=== PATIENT | male | born 1945 | race African-American/Black ===

== ENCOUNTER 2019-04-28 12:43 | Emergency (ER) | payer MEDICARE ==
[~2019-04-28] VITALS: Ht 182.9 cm; Wt 117.9 kg
--- NOTE | 2019-04-28 13:26 | RAD ---
EXAM: Head CT without contrast. HISTORY: Left-sided weakness. Anticoagulation. TECHNIQUE: Computed tomographic images of the head were obtained without contrast. *One or more of the following individualized dose reduction techniques were utilized for this examination: 1. Automated exposure control. 2. Adjustment of the mA and/or kV according to patient size. 3. Use of iterative reconstruction technique. COMPARISON: None. FINDINGS: There is no acute or subacute extra-axial or intraparenchymal hemorrhage. There is no mass effect or midline shift. There is no hydrocephalus. There are areas of decreased attenuation within the cerebral white matter, nonspecific and likely related to chronic small vessel disease. There is a tiny focus of increased density at the roof of the third ventricle, possibly due to cord calcification or a tiny colloid cyst of no clinical significance. There is heavily calcified atherosclerotic plaque within the distal vertebral and internal carotid arteries. There is paranasal sinus mucosal thickening. There is orbital band keratopathy. The mastoid air cells are clear. There is no suspicious calvarial lesion. IMPRESSION: 1. No acute intracranial finding. Note is made that MRI is more sensitive for acute infarction. 2. Decreased attenuation within the cerebral white matter, most commonly due to chronic small vessel disease. Electronically signed by: Megan Sharp MD (04/28/2019 1:23 PM) [id number]
--- NOTE | 2019-04-28 13:42 | EKG ---
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
--- NOTE | 2019-04-28 13:50 | PHYS DOC ---
Past Medical History Past Medical History: A-Fib, Hypertension Adult General HPI HPI Patient is a 73 year old who was taken here by EMS from his doctor office due to one-week history of left shoulder pain, left elbow pain, left wrist pain. Patient said he had a history of gout on his right wrist before and he felt like this is gout pain. he denies any fever, no trouble breathing, no chest pain, no cough or fever. he has history of atrial fibrillation, he is on coumadin and amiodaron , he is supposed take the medication at 4 PM every day. Patient had not taken his medication yet. Patient also has history of hypertension, he is on lisinopril and Lasix. he denies any weakness or numbness, no headache, no slur red speech. All other ROS is negative unless otherwise noted in HPI Review of Systems Review of Systems See above Current Medications Current Medications Current Medications Medications (Trade) Dose Ordered Sig/Mel Start Time Stop Time Status Last Admin Dose Admin Acetaminophen/ Hydrocodone Bitart (Lortab 10/325) 1 tab 1X ONCE 04/28/19 15:30 04/28/19 15:31 DC 04/28/19 15:36 1 TAB Diltiazem HCl (Cardizem Iv Push) 10 mg 1X ONCE 04/28/19 14:30 04/28/19 14:31 DC 04/28/19 14:28 10 MG Methylprednisolone Sodium Succinate (SOLU-Medrol 125MG VIAL) 125 mg 1X ONCE 04/28/19 15:30 04/28/19 15:31 DC 04/28/19 15:37 125 MG Allergies Allergies Allergies Coded Allergies Type Severity Reaction Last Updated Verified No Known Drug Allergies 04/28/19 No Physical Exam Physical Exam See above Constitutional: Well developed, well nourished, no acute distress, non-toxic appearance. [] HENT: Normocephalic, atraumatic, bilateral external ears normal, oropharynx moist, no oral exudates, nose normal. [] Eyes: PERRLA, EOMI, conjunctiva normal, no discharge. [] Neck: Normal range of motion, no tenderness, supple, no stridor. [] Cardiovascular: irregular rhythm, tachycardia, rate regular rhythm, no murmur [] Lungs & Thorax: Bilateral breath sounds clear to auscultation [] Abdomen: Bowel sounds normal, soft, no tenderness, no masses, no pulsatile masses. [] Skin: Warm, dry, no erythema, no rash. [] Back: No tenderness, no CVA tenderness. [] Extremities: Left shoulder, left elbow and left wrist were warm to touch, mild swelling, tender to palpation. Neurologic: Alert and oriented X 3, normal motor function, normal sensory func tion, no focal deficits noted. NO FOCAL NEUROLOGIC DEFICIT. Psychologic: Affect normal, judgement normal, mood normal. [] Current Patient Data Vital Signs Vital Signs Date Time Temp Pulse Resp B/P (MAP) Pulse Ox O2 Delivery O2 Flow Rate FiO2 04/28/19 15:36 16 95 Room Air 04/28/19 14:49 106 136/89 (105) 04/28/19 12:44 98.8 98.8 Lab Values Laboratory Tests Test 04/28/19 13:50 White Blood Count 14.8 x10^3/uL (4.0-11.0) H Red Blood Count 5.99 x10^6/uL (4.30-5.70) H Hemoglobin 16.3 g/dL (13.0-17.5) Hematocrit 49.3 % (39.0-53.0) Mean Corpuscular Volume 82 fL (79-100) Mean Corpuscular Hemoglobin 27 pg (25-35) Mean Corpuscular Hemoglobin Concent 33 g/dL (31-37) Red Cell Distribution Width 16.4 % (11.5-14.5) H Platelet Count 174 x10^3/uL (140-400) Neutrophils (%) (Auto) 86 % (31-73) H Lymphocytes (%) (Auto) 7 % (24-48) L Monocytes (%) (Auto) 7 % (0-9) Eosinophils (%) (Auto) 0 % (0-3) Basophils (%) (Auto) 0 % (0-3) Neutrophils # (Auto) 12.8 x10^3/uL (1.8-7.7) H Lymphocytes # (Auto) 1.0 x10^3/uL (1.0-4.8) Monocytes # (Auto) 1.0 x10^3/uL (0.0-1.1) Eosinophils # (Auto) 0.0 x10^3/uL (0.0-0.7) Basophils # (Auto) 0.0 x10^3/uL (0.0-0.2) Platelet Estimate Pending Prothrombin Time 42.6 SEC (11.7-14.0) H Prothrombin Time INR 4.5 (0.8-1.1) *H Activated Partial Thromboplast Time 55 SEC (24-38) H Sodium Level 139 mmol/L (136-145) Potassium Level 3.8 mmol/L (3.5-5.1) Chloride Level 101 mmol/L (98-107) Carbon Dioxide Level 28 mmol/L (21-32) Anion Gap 10 (6-14) Blood Urea Nitrogen 18 mg/dL (8-26) Creatinine 1.6 mg/dL (0.7-1.3) H Estimated GFR (Cockcroft-Gault) 51.8 BUN/Creatinine Ratio 11 (6-20) Glucose Level 153 mg/dL (70-99) H Uric Acid 9.2 mg/dL (3.5-7.2) H Calcium Level 8.7 mg/dL (8.5-10.1) Magnesium Level 2.1 mg/dL (1.8-2.4) Total Bilirubin 2.2 mg/dL (0.2-1.0) H Aspartate Amino Transferase (AST) 17 U/L (15-37) Alanine Aminotransferase (ALT) 12 U/L (16-63) L Alkaline Phosphatase 54 U/L (46-116) Troponin I Quantitative < 0.017 ng/mL (0.000-0.055) Total Protein 7.9 g/dL (6.4-8.2) Albumin 3.2 g/dL (3.4-5.0) L Albumin/Globulin Ratio 0.7 (1.0-1.7) L Laboratory Tests 04/28/19 13:50 Laboratory Tests 04/28/19 13:50 EKG EKG EKG WAS READ BY THIS PHYSICIAN AT 1252, RATE OF 137, WIDE QRS complex, afib with RVR. SECOND EKG WAS DONE , RATE OF 106 BPM, NO STEMI, SINUS TACHYCARDIA Patient has no chest pain, no shortness of air. Radiology/Procedures Radiology/Procedures [][facility] [address] [place] [address] IMAGING REPORT Signed PATIENT: PAULINA DEE ACCOUNT: [id number] : 1945 LOCATION: ER AGE: 73 SEX: M EXAM STATUS: REG ER ORD. PHYSICIAN: ROULA GUNN DO REASON: LEFT SIDE WEAKNESS, ON COUMADIN PROCEDURE: CT HEAD WO CONTRAST EXAM: Head CT without contrast. HISTORY: Left-sided weakness. Anticoagulation. TECHNIQUE: Computed tomographic images of the head were obtained without contrast. *One or more of the following individualized dose reduction techniques were utilized for this examination: 1. Automated exposure control. 2. Adjustment of the mA and/or kV according to patient size. 3. Use of iterative reconstruction technique. COMPARISON: None. FINDINGS: There is no acute or subacute extra-axial or intraparenchymal hemorrhage. There is no mass effect or midline shift. There is no hydrocephalus. There are areas of decreased attenuation within the cerebral white matter, nonspecific and likely related to chronic small vessel disease. There is a tiny focus of increased density at the roof of the third ventricle, possibly due to cord calcification or a tiny colloid cyst of no clinical significance. There is heavily calcified atherosclerotic plaque within the distal vertebral and internal carotid arteries. There is paranasal sinus mucosal thickening. There is orbital band keratopathy. The mastoid air cells are clear. There is no suspicious calvarial lesion. IMPRESSION: 1. No acute intracranial finding. Note is made that MRI is more sensitive for acute infarction. 2. Decreased attenuation within the cerebral white matter, most commonly due to chronic small vessel disease. Electronically signed by: Megan Early MD (04/28/2019 1:23 PM) [place] [id number] DICTATED and SIGNED BY: MEGAN EARLY MD DATE: 04/28/19 1323 Course & Med Decision Making Course & Med Decision Making Pertinent Labs and Imaging studies reviewed. (See chart for details) Patient was found to have afib with RVR. He was given 10 mg diltiazem iv bolus, heart rate slow downed. Patient denied any chest pain or shortness of air. Patient wanted to go home. HIS PCP, DR. SHERMAN was consulted by phone, recommended discharge patient home, will see patient in clinic. Patient mostly had gout flareup in his left shoulder, left elbow and left wrist. Patient will be discharged home will be discharged home with Medrol Dosepak's. Dragon Disclaimer Ankita Disclaimer This electronic medical record was generated, in whole or in part, using a voice recognition dictation system. Departure Departure Impression: Primary Impression: Gout attack Additional Impression: Atrial fibrillation Disposition: HOME, SELF-CARE Condition: IMPROVED Referrals: TONI SHERMAN MD (PCP) please follow up with your doctor this week for reevaluation. come back if you have chest pain, soa with heart palpitation. Patient Instructions: Atrial Fibrillation, [id number], Gout Scripts Prednisone (PREDNISONE) 20 Mg Tablet 1 TAB PO DAILY for 10 Days, #10 TAB Prov: ROULA GUNN DO 04/28/19 Problem Qualifiers ROULA GUNN DO Apr 28, 2019 13:50
[2019-04-28 14:14] LABS: BASO % 0 % (0-3); EOS % 0 % (0-3); HEMATOCRIT 49.3 % (39.0-53.0); HEMOGLOBIN 16.3 g/dL (13.0-17.5); LYMPH % 7 % (24-48); MEAN CORPUSCULAR HEMOGLOBIN 27 pg (25-35); MEAN CORPUSCULAR HGB CONC 33 g/dL (31-37); MEAN CORPUSCULAR VOLUME 82 fL (79-100); MONO % 7 % (0-9); NEUT # 12.8 x10^3/uL (1.8-7.7); NEUT % 86 % (31-73); PLATELET COUNT 174 x10^3/uL (140-400); RED BLOOD COUNT 5.99 x10^6/uL (4.30-5.70); RED CELL DISTRIBUTION WIDTH 16.4 % (11.5-14.5); WHITE BLOOD COUNT 14.8 x10^3/uL (4.0-11.0)
[2019-04-28 14:24] LABS: CALCIUM 8.7 mg/dL (8.5-10.1); CREATININE 1.6 mg/dL (0.7-1.3); GFR 51.8; POTASSIUM 3.8 mmol/L (3.5-5.1)
[2019-04-28] MEDS: dilTIAZem IV PUSH 25 MG/5 ML VIAL IVP ONE (14:28)
[2019-04-28 14:30] LABS: ALBUMIN 3.2 g/dL (3.4-5.0); ALBUMIN/GLOBULIN RATIO 0.7 (1.0-1.7); MAGNESIUM 2.1 mg/dL (1.8-2.4); TOTAL BILIRUBIN 2.2 mg/dL (0.2-1.0); TOTAL PROTEIN 7.9 g/dL (6.4-8.2)
[2019-04-28 14:37] LABS: PROTHROMBIN TIME PATIENT 42.6 SEC (11.7-14.0)
[2019-04-28] MEDS: HYDROcodone/APAP 10/325 1 TAB TABLET PO ONE (15:36)
[2019-04-28] MEDS: methylPREDNISolone SOD SUCC PF 125 MG/2 ML VIAL. IV ONE (15:37)
[2019-04-28 15:49] VITALS: BP 120/78
[2019-04-28] MEDS ORDERED: PRED20TA PO (16:01)
[2019-04-28 16:26] LABS: % BANDS 6 % (0-9); % EOS 1 % (0-5); % MONOS 7 % (0-10); PLT ESTIMATE ADEQUATE (ADEQUATE)
[2019-04-28 16:27] LABS: % LYMPHS 10 % (24-48); % SEGS 76 % (35-66)
--- NOTE | 2019-04-29 08:18 | EKG ---
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
== END 2019-04-28 16:14 | disposition home or self-care (01) ==
LOC: ER 12:43
DX: M10.9 Gout, unspecified (principal); I48.91 Unspecified atrial fibrillation; R51 Headache; I10 Essential (primary) hypertension
CPT/HCPCS: 36415; 70450; 80053; 83735; 84484; 84550; 85007; 85025; 85610; 85730; 93005; 96374; 96375; 99285; J2930; J3490